=== PATIENT | female | born 1995 | race Caucasian/White ===

== ENCOUNTER 2025-06-10 10:33 | Outpatient (CLI) | payer OTHER, SELFPAY ==
--- OUTSIDE RECORDS SUMMARY | 2025-06-06 11:45 | XMS_ITS ---
Author Organization [facility] [place] [facility] [employer] [place] Address [address] [facility] [place] [address] Care Team Providers Care Pan Shover Name Role Phone Manny Bauer MD Primary Care Provider Candelario Yoo Unavailable [phone] Allergies No Known Allergies REASON FOR VISIT 1 month f/u Medications Medication SIG (Take, Route, Frequency, Duration) Notes Start Date End Date Status lamoTRIgine ER 25 MG Tablet Extended Release 24 Hour 1 tablet Orally daily; Duration: 14 days 06/06/2025 Active lamoTRIgine ER 50 MG Tablet Extended Release 24 Hour 1 tablet Orally Once a day; Duration: 30 days 06/06/2025 Active Ashwagandha 300 MG Tablet as directed Orally Active LORazepam 0.5 MG Tablet 1 tablet Orally twice a day; Duration: 14 days As needed 06/06/2025 Active Vraylar 3 mg Capsule 1 capsule Orally On ce a day; Duration: 30 days 06/06/2025 Active metFORMIN HCl ER 500 MG Tablet Extended Release 24 Hour Oral; Duration: 90 Days Not-Taking Glycopyrrolate 1 MG Tablet TAKE 1 TABLET BY MOUTH EVERY DAY FOR 30 DAYS; Duration: 30 Not-Taking Social History Tobacco Use: Social History Observation Description Date Details (start date - stop date) Never Smoker NA - NA Sex Assigned At : Social History Observation Description Sex Assigned At Female Social History Miscellaneous: Social Info Question Answer Notes Advance Care Planning Are you your own decision-maker Yes Do you have Power of Senior Health Educator for Health or Medi phylicia? No Tobacco Use: Social Info Question Answer Notes Tobacco Control (Standard) Tobacco use: Nonsmoker Additional Details Category Social Info Options Details Migrated Social History Migrated Social History Alcohol Intake: Occasional 08/16/2021,Tobacco Years: Never smoker 08/16/2021 Vital Signs Blood pressure systolic 113 mm Hg 06/06/20 25 Blood pressure diastolic 78 mm Hg 025 Heart Rate 73 /min 06/06/2025 Height 62.50 in 06/06/2025 Weight 170 lbs 06/06/2025 BMI 30.59 kg/m2 06/06/2025 Height-cm 158.75 cm 06/06/2025 Weight-kg 77.11 kg 06/06/2025 Encounters Encounter Location Date Provider Diagnosis [facility] [place] [employer] [facility] [address] [facility] [address] [place] [address] 06/06/2025 Candelario Falk Generalized anxiety disorder F41.1 ; Attention-deficit hyperactivity disorder, predominantly inattentive type F90.0 ; Mild recurrent major depression F33.0 ; Other custodial (current) drug therapy Z79.899 and Hyperhidrosis R61 Assessments Encounter Date Diagnosis (ICD Code) Assessment Notes Treatment Notes Treatment Clinical Notes Section Notes 06/06/2025 Generalized anxiety disorder (ICD-10 - F41.1) lorazepam 0.5mg prn stable 06/06/2025 Attention-deficit hyperactivity disorder, predominantly inattentive type (ICD-10 - F90.0) monitor symptoms 06/06/2025 Mild recurrent major depression (ICD-10 - F33.0) 06/06/2025 Other metalsmith (current) drug therapy (ICD-10 - Z79.899) 06/06/2025 Hyperhidrosis (ICD-10 - R61) Plan Of Treatment Medication Medication Name Sig Start Date Stop Date Notes lamoTRIgine ER 25 MG Tablet Extended Release 24 Hour 1 tablet Orally daily; Duration: 14 days 06/06/2025 lamoTRIgine ER 50 MG Tablet Extended Release 24 Hour 1 tablet Orally Once a day; Duration: 30 days 06/06/2025 LORazepam 0.5 MG Tablet 1 tablet Orally twice a day; Duration: 14 days 06/06/2025 Vraylar 3 mg Capsule 1 capsule Orally On ce a day; Duration: 30 days 06/06/2025 Treatment Notes Assessment Notes Generalized anxiety disorder lorazepam 0.5mg prn stable Attention-deficit hyperactiv ity disorder, predominantly inattentive type monitor symptoms Next Appt Details Follow Up: 4 Weeks, Reason: f/u depression Provider Name:Candelario garcia, 07/18/2025 04:30:00 PM, [address] [address] [facility], [place], [address], History and Physical Notes * HPI (History of Present Illness) Category Sub-Category Detail Notes Category Not es History of Presenting Problem Anxiety Onset: years ago Depression screening done ADHD difficulty with focu s, concentration Timing of Symptoms: chronic ADHD Context: increased productivity at work ADHD Severity: mild Modifying factors: medication adherence: greater than 90%; concerta- didnt help, adderall xr- work off within a few hours ADHD Associated Symptoms Inattention: able to pay attention; well organized; not easily distracted Psychotherapy Krista at [facility] Depression screening PHQ-9 Little inte rest or pleasure in doing things: Several days Feeling down, depressed, or hopeless: Se veral days Trouble falling or staying asleep, or sl eeping too much: Not at all Feeling tired or having little energy: S everal days Poor appetite or overeating: More than h [facility] the days Feeling bad about yourself o r that you are a failure, or have let yourself or your family down: Not at all Trouble concentrating on thi ngs, such as reading the newspaper or watching television: Several days Moving or speaking so slowly that other people could have noticed; or the opposite, being so fidgety or restless that you have been moving around a lot more than usual: Not at all Thoughts that you would be b timbo off or of hurting yourself in some way: Not at all Total Score: 6 Interpretation: Mild Depression Intervention Depression Screening Findings: P ositve Follow-Up for Depression: [facility] health care management, Psychiatric follow-up Suicide Risk Assessment Performed: __ da te Depression Screening REINA-7 (2018 Edition) Feelin g nervous, anxious, or on edge: Nearly every day Not being able to stop or control worryi ng: More than half the days Worrying too much about different things : More than hafl the days Trouble relaxing: Nearly every day Being so restless that it is hard to sit still: Several days Becoming easily annoyed or irritable: No t at all Feeling afraid as if something awful bruce ht happen: Several days Total REINA-7 Score: 12 Interpretation of Total: (10 to 14) Mode rate [place]-Suicide Severity Rating Scale Suicide Risk (CSRS-screener) in the past one month Have you wished you were or wished you could go to sleep and not wake up?: No in the past one month Have y ou actually had any thoughts of killing yourself?: No Have you ever done anything, started to do anything, or prepared to do anything to end your life?: No Examination Category Sub-Category Detail Notes Category Not es Psychiatry Appearance: well-groomed, well-nourished , ... Attitude: cooperative Psychomotor activity: within normal rang e Attention: good Degree of awareness of surroundings: wit hin normal limits Orientation: awake, alert and luis m ented x 3 Affect / mood: appropriate, full ra nge Speech / language: appropriate pitch/mo dulation, clear and coherent, normal rate, volume, and articulation (RVR), proper grammar used Insight: good Judgement: good Thought process: intact Thought content: appropriate Perceptual disorders: no perceptual diso rder noted Suicidal ideation: none Intellectual functioning: no impairment noted Memory status: no impairment noted Delusions: no Hallucinations: no Progress Notes * NANCY KHANHELDOB:[birth year] (29 yo F)Acc No.[id number]:06/06/2025 Patient: MOLINA CONDON Provider: BRII STOKES :1995 A ge:29 Y S ex:Female Date:06/06/2025 Address:[address] [place] [address] [facility] Pcp:Manyn Bauer MD Subjective: * Chief Complaints: * 1 month f/u * HPI: H istory of Presenting Problem: Anxiety O nset: years ago. ADHD d ifficulty with focus, concentration T iming of Symptoms: c hronic A DHD Context: i ncreased productivity at work A DHD Severity: m ild M odifying factors: m edication adherence: greater than 90%; concerta- didnt help, adderall xr- work off within a few hours A DHD Associated Symptoms Inattention: a ble to pay attention; well organized; not easily distracted. Psychotherapy Lynne worthy at [facility]. Depression screening done. D epression Screening: REINA-7 (2018 Edition) F eeling nervous, anxious, or on edge N early every day N ot being able to stop or control worrying?More than half the days W orrying too much about different things M ore than hafl the days T rouble relaxing N early every day B eing so restless that it is hard to sit still S ever B ecoming easily annoyed or irritable N ot at all F eeling afraid as if something awful might happen S ever T otal REINA-7 Score 1 2 I nterpretation of Total ( 10 to 14) Moderate C [place]-Suicide Severity Rating Scale: Suicide Risk (CSRS-screener) i n the past one month Have you wished you were or wished you could go to sleep and not wake up? N o i n the past one month Have you actually had any thoughts of killing yourself? N o H ave you ever done anything, started to do anything, or prepared to do anything to end your life? N o D epression screening: PHQ-9 L ittle interest or pleasure in doing things?Several days F eeling down, depressed, or hopeless S ever T rouble falling or staying asleep, or sleeping too much N ot at all F eeling tired or having little energy S ever P oor appetite or overeating M ore than half the days F eeling bad about yourself or that you are a failure, or have let yourself or your family down N ot at all T rouble concentrating on things, such as reading the newspaper or watching television S ever M oving or speaking so slowly that other people could have noticed; or the opposite, being so fidgety or restless that you have been moving around a lot more than usual N ot at all T houghts that you would be better off or of hurting yourself in some way N ot at all T otal Score 6 I nterpretation M ild Depression Intervention D epression Screening Findings P ositve F ollow-Up for Depression M ental health care management, Psychiatric follow-up S uicide Risk Assessment Performed _ _ date P ast Psychiatric Hospitalizations: hx of non adherence with medication citalopram, atomoxetine, sertraline, Concerta, Adderall xr, vraylar, vyvanse. 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 The patient had telephone consultations with Amberly Gregory and Luana Payan at [facility] on March 18, 2024, and March 15, 2024, respectively. The patient also had an office visit with Migdalia Figueroa DO at [facility] on June 11, 2024, and a telemedicine consultation on October 09, 2024, for spells of decreased attentiveness. On October 28, 2024, the patient visited Emelina Aleman NP at [facility] for bronchitis. 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 The patient also had a lab encounter on the same day for hepatitis C screening, family history of thyroid disease, and lipid screening. Medical History Verified * Social History: T obacco Use: T obacco Control (Standard) T obacco use: N onsmoker M igrated Social History: M igrated Social History: Alcohol Intake: Occasional 08/16/2021,Tobacco Years: Never smoker 08/16/2021. M iscellaneous: A dvance Care Planning A re you your own decision-maker Y es D o you have Power of Senior Health Educator for Health or Medical? N o S ocial History Verified. * Medications: T akingAshwagandha 300 MG Tablet as directed Orally LORazepam 0.5 MG Tablet 1 tablet Orally twice a day As neededVraylar 3 mg Capsule 1 capsule Orally Once a day Taking Ashwagandha 300 MG Tablet as directed Orally Taking LORazepam 0.5 MG Tablet 1 tablet Orally twice a day As neededTaking Vraylar 3 mg Capsule 1 capsule Orally Once a day Not-TakingGlycopyrrolate 1 MG Tablet TAKE 1 TABLET BY MOUTH EVERY DAY FOR 30 DAYS metFORMIN HCl ER 500 MG Tablet Extended Release 24 Hour Oral Not-Taking Glycopyrrolate 1 MG Tablet TAKE 1 TABLET BY MOUTH EVERY DAY FOR 30 DAYS Not- Taking metFORMIN HCl ER 500 MG Tablet Extended Release 24 Hour Oral DiscontinuedTopiramate 25 MG Tablet Oral Medication List reviewed and reconciled with the patientDiscontinued Topiramate 25 MG Tablet Oral Medication List reviewed and reconciled with the patient * Allergies: N .K.D.AHeatheryesAllergies Verified. Objective: * Vitals: B P:113/78mm Hg, HR:73/min, Wt:170lbs, Wt-k.11 kg, Ht: 62.50 in, Ht-cm: 158.75 cm, BMI:30.59Index, Body Surface Area: 1.84. * Examination: P sychiatry: Appearance: w ell-groomed, well-nourished, .... Affect / mood: a ppropriate, full range. Attention: g ood. Attitude: c ooperative. Suicidal ideation: n one. Memory status: n o impairment noted. Degree of awareness of surroundings: w ithin normal limits.? Delusions: n o. Hallucinations: n o. Insight: g ood. Intellectual functioning: n o impairment noted. Judgement: g ood. Orientation: a wake, alert and oriented x 3. Perceptual disorders: n o perceptual disorder noted. Psychomotor activity: w ithin normal range. Speech / language: a ppropriate pitch/modulation, clear and coherent, normal rate, volume, and articulation (RVR), proper grammar used. Thought content: a ppropriate. Thought process: i ntact. Assessment: * Assessment: 1. G eneralized anxiety disorder - F41.1 (Primary) 2 . A ttention-deficit hyperactivity disorder, predominantly inattentive type - F90.0 3 . M ild recurrent major depression - F33.0 4 . O ther metalsmith (current) drug therapy - Z79.899 5. H yperhidrosis - R61 Plan: * Treatment: 2. A ttention-deficit hyperactivity disorder, predominantly inattentive type Notes: monitor symptoms 3. M ild recurrent major depression Refill Vraylar Capsule, 3 mg, 1 capsule, Orally, Once a day, 30 days, 30 Capsule, Refills 1; S tart lamoTRIgine ER Tablet Extended Release 24 Hour, 25 MG, 1 tablet, Orally, daily, 14 days, 14 Tablet, Refills 0; S tart lamoTRIgine ER Tablet Extended Release 24 Hour, 50 MG, 1 tablet, Orally, Once a day, 30 days, 30 Tablet, Refills 0. * Procedure Codes: 1 036F TOBACCO [id number] BEHAV ASSMT W/SCORE & DOCD/STAND INSTRUMENT * Preventive Medicine: Screenings: D epression screening Have you had a recent depression screening? Y es * Follow Up: 4 Weeks (Reason: f/u depression) Billing Information: * Visit Code: 31510 OFFICE OUTPATIENT VISIT 25 MINUTES DETAILED HISTORY AND EXAM/MODERATE MEDICAL DECISION MAKING. * Procedure Codes: 1036F TOBACCO NON-USER. 50875 BEHAV ASSMT W/SCORE & DOCD/STAND INSTRUMENT. * Electronic signature of BRII Rm on 06/10/2025 at 11:36 AM CDT Sign off status: Pending * Provider: BRII STOKES Date: Generated for Leti nicholas/Yeison/Joi on: 11:36 AM CDT
--- OUTSIDE RECORDS SUMMARY | 2025-06-10 11:36 | XMS_ITS | Patient Health Record ---
Author Organization [facility] [employer] Address [address] [place] [address] Care Team Providers Care Tier Lift Operator Name Role Phone Manny Bauer MD Primary Care Provider Candelario Yoo Unavailable [phone] Allergies No Known Allergies Reason For Referral No Information Medications Medication SIG (Take, Route, Frequency, Duration) Notes Start Date End Date Status Vraylar 3 mg Capsule 1 capsule Orally On ce a day; Duration: 30 days 06/06/2025 Active lamoTRIgine ER 25 MG Tablet Extended Release 24 Hour 1 tablet Orally daily; Duration: 14 days 06/06/2025 Active lamoTRIgine ER 50 MG Tablet Extended Release 24 Hour 1 tablet Orally Once a day; Duration: 30 days 06/06/2025 Active Ashwagandha 300 MG Tablet as directed Orally Active LORazepam 0.5 MG Tablet 1 tablet Orally twice a day; Duration: 14 days As needed 06/06/2025 Active metFORMIN HCl ER 500 MG Tablet Extended Release 24 Hour Oral; Duration: 90 Days Not-Taking Glycopyrrolate 1 MG Tablet TAKE 1 TABLET BY MOUTH EVERY DAY FOR 30 DAYS; Duration: 30 Not-Taking Immunizations Vaccine Route Administration Date Status Comme nts [employer] Covid-19 Vac cine 2nd dose Unknown 08/15/2021 Administered Social History Tobacco Use: Social History Observation Description Date Details (start date - stop date) Never Smoker NA - NA Sex Assigned At : Social History Observation Description Sex Assigned At Female Social History Miscellaneous: Social Info Question Answer Notes Advance Care Planning Are you your own decision-maker Yes Do you have Power of Seo Executive for Health or Medi phylicia? No Tobacco Use: Social Info Question Answer Notes Tobacco Control (Standard) Tobacco use: Nonsmoker Additional Details Category Social Info Options Details Migrated Social History Migrated Social History Alcohol Intake: Occasional 08/16/2021,Tobacco Years: Never smoker 08/16/2021 Problems Problem Type SNOMED Code ICD Code Onset Dates Problem Status W/U Status Risk Notes Problem Mild recurrent major depression (09718020) Major depressive disorder, recurrent, mild (F33.0) Active confirmed Problem Generalized anxiety disorder (50588494) Generalized anxiety disorder (F41.1) Active confirmed Problem Attention deficit hyperactivity disorder, predominantly inattentive type (02243677) Attention-deficit hyperactivity disorder, 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 confirmed Problem Mild recurrent major depression (74676360) Mild recurrent major depression (F33.0) Active confirmed Problem Severe major depression with psychotic features (29719370) Severe major depression with psychotic features (F32.3) Active confirmed Vital Signs Heart Rate 73 /min 06/06/2025 Height-cm 158.75 cm 06/06/2025 Blood pressure diastolic 78 mm Hg 06/06/2025 Weight-kg 77.11 kg 06/06/2025 Height 62.50 in 06/06/2025 Blood pressure systolic 113 mm Hg 06/06/2025 Weight 170 lbs 06/06/2025 BMI 30.59 kg/m2 06/06/2025 Encounters Encounter Location Date Provider Diagnosis [facility] [employer] [address] [place] [address] 06/06/2025 Candelario Falk Generalized anxiety disorder F41.1 ; Attention-deficit hyperactivity disorder, predominantly inattentive type F90.0 ; Mild recurrent major depression F33.0 ; Other fpc (current) drug therapy Z79.899 and Hyperhidrosis R61 [facility] [address] [place] [address] 06/11/2024 Candelario Falk Generalized anxiety disorder F41.1 ; Attention-deficit hyperactivity disorder, predominantly inattentive type F90.0 and Severe major depression with psychotic features F32.3 [facility] [address] [place] [address] 07/09/2024 Candelario Falk Generalized anxiety disorder F41.1 ; Attention-deficit hyperactivity disorder, predominantly inattentive type F90.0 and Severe major depression with psychotic features F32.3 [facility] [address] [place] [address] 08/09/2024 Candelario Falk Generalized anxiety disorder F41.1 ; Attention-deficit hyperactivity disorder, predominantly inattentive type F90.0 ; Mild recurrent major depression F33.0 ; Irregular periods/menstrual cycles N92.6 ; 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 and Hyperhidrosis R61 [facility] [address] [place] [address] 09/27/2024 Candelario Falk Generalized anxiety disorder F41.1 ; Attention-deficit hyperactivity disorder, predominantly inattentive type F90.0 ; Mild recurrent major depression F33.0 ; Irregular periods/menstrual cycles N92.6 ; 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 and Hyperhidrosis R61 [facility] [address] [place] [address] 10/28/2024 Candelario Falk [facility] [address] [place] [address] 12/24/2024 Candelario Falk Generalized anxiety disorder F41.1 ; Attention-deficit hyperactivity disorder, predominantly inattentive type F90.0 ; Mild recurrent major depression F33.0 ; Irregular periods/menstrual cycles N92.6 ; Other fpc (current) drug therapy Z79.899 and Hyperhidrosis R61 [facility] [address] [place] [address] 02/28/2025 Candelario Falk Generalized anxiety disorder F41.1 ; Attention-deficit hyperactivity disorder, predominantly inattentive type F90.0 ; Mild recurrent major depression F33.0 ; Irregular periods/menstrual cycles N92.6 ; 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 and Hyperhidrosis R61 [facility] [address] [place] [address] 05/09/2025 Candelario Falk Generalized anxiety disorder F41.1 ; Attention-deficit hyperactivity disorder, predominantly inattentive type F90.0 ; Mild recurrent major depression F33.0 ; 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 and Hyperhidrosis R61 [facility] [address] [place] [address] 06/26/2024 Candelario Falk [facility] [address] [facility] [address] [place] [address] 07/30/2024 Candelarioraven Falk Severe major depress ion with psychotic features F32.3 [facility] [address] [facility] [address] [facility] [address] [place] [address] 12/13/2024 Candelario Falk Mild recurrent major depression F33.0 [place] [address] [facility] [address] [place] [address] 12/16/2024 Candelarioraven Falk [facility] [address] [facility] [address] [facility] [address] [place] [address] 05/27/2025 Candelarioraven Falk Assessments Encounter Date Diagnosis (ICD Code) Assessment Notes Treatment Notes Treatment Clinical Notes Section Notes 07/30/2024 Severe major depression with psychotic features (ICD-10 - F32.3) 08/09/2024 Generalized anxiety disorder (ICD-10 - F41.1) lorazepam 0.5mg prn 1. Hyperhidrosis: - Continue quetiapine 100 mg daily - Consider adding clonidine, propranolol, or glycopyrrolate for sweating management - Encourage the use of stronger deodorants and antibacterial soap Plan: - Monitor for side effects and effectiveness of the chosen treatment 2. Anxiety: - Continue quetiapine 100 mg daily - Consider adding clonidine or propranolol for anxiety management if needed Plan: - Monitor for side effects and effectiveness of the chosen treatment 3. Mood stability: - Continue quetiapine 100 mg daily - Monitor mood and adjust the dose of quetiapine as needed during acute states Plan: - Encourage the patient to maintain a stable routine and manage stressors 4. Fatigue: Plan: - Order lab work: CBC, CMP, thyroid panel, lipid panel, hemoglobin A1C, iron studies - Evaluate for anemia, thyroid dysfunction, and other potential causes of fatigue - Monitor and address any identified abnormalities 5. Irregular and heavy menstrual cycles: Plan: - Order hormone tests: luteinizing hormone, follicle-stimula ting hormone, testosterone, estrogen - Evaluate for polycystic ovary syndrome (PCOS) or other hormonal imbalances - Refer to ob-customer management specialist or primary care provider if hormone levels are abnormal 6. Medication refills: Plan: - Refill methylphenidate prescription - Refill quetiapine 100 mg prescription - Ensure the patient has an adequate supply of medications until the next visit 7. Follow-up: - Schedule a follow-up appointment in one month to review lab results and assess the effectiveness of the treatment plan - Adjust medications and treatment plan as needed based on the patient's response and lab findings 08/09/2024 Attention-defic it hyperactivity disorder, predominantly inattentive type (ICD-10 - F90.0) monitor symptoms 1. Hyperhidrosis: - Continue quetiapine 100 mg daily - Consider adding clonidine, propranolol, or glycopyrrolate for sweating management - Encourage the use of stronger deodorants and antibacterial soap Plan: - Monitor for side effects and effectiveness of the chosen treatment 2. Anxiety: - Continue quetiapine 100 mg daily - Consider adding clonidine or propranolol for anxiety management if needed Plan: - Monitor for side effects and effectiveness of the chosen treatment 3. Mood stability: - Continue quetiapine 100 mg daily - Monitor mood and adjust the dose of quetiapine as needed during acute states Plan: - Encourage the patient to maintain a stable routine and manage stressors 4. Fatigue: Plan: - Order lab work: CBC, CMP, thyroid panel, lipid panel, hemoglobin A1C, iron studies - Evaluate for anemia, thyroid dysfunction, and other potential causes of fatigue - Monitor and address any identified abnormalities 5. Irregular and heavy menstrual cycles: Plan: - Order hormone tests: luteinizing hormone, follicle-stimula ting hormone, testosterone, estrogen - Evaluate for polycystic ovary syndrome (PCOS) or other hormonal imbalances - Refer to ob-customer management specialist or primary care provider if hormone levels are abnormal 6. Medication refills: Plan: - Refill methylphenidate prescription - Refill quetiapine 100 mg prescription - Ensure the patient has an adequate supply of medications until the next visit 7. Follow-up: - Schedule a follow-up appointment in one month to review lab results and assess the effectiveness of the treatment plan - Adjust medications and treatment plan as needed based on the patient's response and lab findings 06/11/2024 Generalized anxiety disorder (ICD-10 - F41.1) lorazepam 0.5mg prn 1. Depression: - Patient reports improvement in mood with quetiapine ER 150 mg. Memory issues and word association problems persist but are improving. Plan: - Continue quetiapine ER 150 mg. - Encourage the patient to take quetiapine ER earlier in the evening to minimize morning grogginess. 2. Sleep: - Patient reports sleeping well and falling asleep within 30 minutes. Plan: - No changes needed. 3. Anxiety and Paranoia: - Patient reports occasional paranoia related to returning to work but no hallucinations. Plan: - Continue monitoring. No changes to medication at this time. 4. Attention and Concentration: - Patient reports difficulty with processing time, attention, and concentration, which may impact their ability to return to work. Plan: - Discontinue Vyvanse. - Start Concerta 18 mg in the morning on a trial basis to assess its effect on attention and concentration. - Instruct the patient to take it some days before returning to work to evaluate its effectiveness. 5. Work-related stress: - Patient expresses concerns about returning to work and interacting with colleagues and supervisors. Plan: - Encourage the patient to take an additional week off work to adjust to the new medication and continue working on coping strategies for managing work-related stress. - Recommend maintaining professional boundaries with colleagues and addressing any issues directly with supervisors or managers. 6. Follow-up: - Schedule a follow-up appointment in 2-4 weeks to assess the patient's progress, medication effectiveness, and work-related stress management. 09/27/2024 Generalized anxiety disorder (ICD-10 - F41.1) lorazepam 0.5mg prn 12/13/2024 Mild recurrent major depression (ICD-10 - F33.0) 02/28/2025 Generalized anxiety disorder (ICD-10 - F41.1) lorazepam 0.5mg prn stable 05/09/2025 Generalized anxiety disorder (ICD-10 - F41.1) lorazepam 0.5mg prn stable 05/09/2025 Attention-defic it hyperactivity disorder, predominantly inattentive type (ICD-10 - F90.0) monitor symptoms 06/06/2025 Generalized anxiety disorder (ICD-10 - F41.1) lorazepam 0.5mg prn stable 06/06/2025 Attention-defic it hyperactivity disorder, predominantly inattentive type (ICD-10 - F90.0) monitor symptoms 12/24/2024 Generalized anxiety disorder (ICD-10 - F41.1) lorazepam 0.5mg prn 07/09/2024 Generalized anxiety disorder (ICD-10 - F41.1) lorazepam 0.5mg prn 1. Anxiety and paranoia related to workplace gossip: - Continue practicing assertive communication to address nosy coworkers - Focus on work tasks and minimize sharing personal information Plan: - Monitor anxiety levels and report any significant changes 2. Anger management: - Patient reports improvement with current medication (Seroquel) - Continue Seroquel ER at the current dose Plan: - Encourage patient to utilize coping strategies and stress management techniques 3. Cognitive processing and attention difficulties: - Patient currently on Concerta 18 mg with partial improvement Plan: - Increase Concerta to 36 mg daily - Reassess cognitive processing and attention in one month 4. Mood stability: - Patient reports feeling emotionally stable outside of work Plan: - Continue monitoring mood and emotional well-being - Encourage patient to engage in self-care and stress reduction activities 5. Follow-up: - Schedule a follow-up appointment in one month to reassess medication effectiveness and overall mental health status. 07/09/2024 Attention-defic it hyperactivity disorder, predominantly inattentive type (ICD-10 - F90.0) monitor symptoms 1. Anxiety and paranoia related to workplace gossip: - Continue practicing assertive communication to address nosy coworkers - Focus on work tasks and minimize sharing personal information Plan: - Monitor anxiety levels and report any significant changes 2. Anger management: - Patient reports improvement with current medication (Seroquel) - Continue Seroquel ER at the current dose Plan: - Encourage patient to utilize coping strategies and stress management techniques 3. Cognitive processing and attention difficulties: - Patient currently on Concerta 18 mg with partial improvement Plan: - Increase Concerta to 36 mg daily - Reassess cognitive processing and attention in one month 4. Mood stability: - Patient reports feeling emotionally stable outside of work Plan: - Continue monitoring mood and emotional well-being - Encourage patient to engage in self-care and stress reduction activities 5. Follow-up: - Schedule a follow-up appointment in one month to reassess medication effectiveness and overall mental health status. 12/24/2024 Attention-defic it hyperactivity disorder, predominantly inattentive type (ICD-10 - F90.0) monitor symptoms 06/06/2025 Mild recurrent major depression (ICD-10 - F33.0) 05/09/2025 Mild recurrent major depression (ICD-10 - F33.0) 02/28/2025 Attention-defic it hyperactivity disorder, predominantly inattentive type (ICD-10 - F90.0) monitor symptoms 09/27/2024 Attention-defic it hyperactivity disorder, predominantly inattentive type (ICD-10 - F90.0) monitor symptoms 06/11/2024 Attention-defic it hyperactivity disorder, predominantly inattentive type (ICD-10 - F90.0) monitor symptoms 1. Depression: - Patient reports improvement in mood with quetiapine ER 150 mg. Memory issues and word association problems persist but are improving. Plan: - Continue quetiapine ER 150 mg. - Encourage the patient to take quetiapine ER earlier in the evening to minimize morning grogginess. 2. Sleep: - Patient reports sleeping well and falling asleep within 30 minutes. Plan: - No changes needed. 3. Anxiety and Paranoia: - Patient reports occasional paranoia related to returning to work but no hallucinations. Plan: - Continue monitoring. No changes to medication at this time. 4. Attention and Concentration: - Patient reports difficulty with processing time, attention, and concentration, which may impact their ability to return to work. Plan: - Discontinue Vyvanse. - Start Concerta 18 mg in the morning on a trial basis to assess its effect on attention and concentration. - Instruct the patient to take it some days before returning to work to evaluate its effectiveness. 5. Work-related stress: - Patient expresses concerns about returning to work and interacting with colleagues and supervisors. Plan: - Encourage the patient to take an additional week off work to adjust to the new medication and continue working on coping strategies for managing work-related stress. - Recommend maintaining professional boundaries with colleagues and addressing any issues directly with supervisors or managers. 6. Follow-up: - Schedule a follow-up appointment in 2-4 weeks to assess the patient's progress, medication effectiveness, and work-related stress management. 08/09/2024 Mild recurrent major depression (ICD-10 - F33.0) 1. Hyperhidrosis: - Continue quetiapine 100 mg daily - Consider adding clonidine, propranolol, or glycopyrrolate for sweating management - Encourage the use of stronger deodorants and antibacterial soap Plan: - Monitor for side effects and effectiveness of the chosen treatment 2. Anxiety: - Continue quetiapine 100 mg daily - Consider adding clonidine or propranolol for anxiety management if needed Plan: - Monitor for side effects and effectiveness of the chosen treatment 3. Mood stability: - Continue quetiapine 100 mg daily - Monitor mood and adjust the dose of quetiapine as needed during acute states Plan: - Encourage the patient to maintain a stable routine and manage stressors 4. Fatigue: Plan: - Order lab work: CBC, CMP, thyroid panel, lipid panel, hemoglobin A1C, iron studies - Evaluate for anemia, thyroid dysfunction, and other potential causes of fatigue - Monitor and address any identified abnormalities 5. Irregular and heavy menstrual cycles: Plan: - Order hormone tests: luteinizing hormone, follicle-stimula ting hormone, testosterone, estrogen - Evaluate for polycystic ovary syndrome (PCOS) or other hormonal imbalances - Refer to ob-customer management specialist or primary care provider if hormone levels are abnormal 6. Medication refills: Plan: - Refill methylphenidate prescription - Refill quetiapine 100 mg prescription - Ensure the patient has an adequate supply of medications until the next visit 7. Follow-up: - Schedule a follow-up appointment in one month to review lab results and assess the effectiveness of the treatment plan - Adjust medications and treatment plan as needed based on the patient's response and lab findings 08/09/2024 Irregular periods/menstru al cycles (ICD-10 - N92.6) 1. Hyperhidrosis: - Continue quetiapine 100 mg daily - Consider adding clonidine, propranolol, or glycopyrrolate for sweating management - Encourage the use of stronger deodorants and antibacterial soap Plan: - Monitor for side effects and effectiveness of the chosen treatment 2. Anxiety: - Continue quetiapine 100 mg daily - Consider adding clonidine or propranolol for anxiety management if needed Plan: - Monitor for side effects and effectiveness of the chosen treatment 3. Mood stability: - Continue quetiapine 100 mg daily - Monitor mood and adjust the dose of quetiapine as needed during acute states Plan: - Encourage the patient to maintain a stable routine and manage stressors 4. Fatigue: Plan: - Order lab work: CBC, CMP, thyroid panel, lipid panel, hemoglobin A1C, iron studies - Evaluate for anemia, thyroid dysfunction, and other potential causes of fatigue - Monitor and address any identified abnormalities 5. Irregular and heavy menstrual cycles: Plan: - Order hormone tests: luteinizing hormone, follicle-stimula ting hormone, testosterone, estrogen - Evaluate for polycystic ovary syndrome (PCOS) or other hormonal imbalances - Refer to ob-customer management specialist or primary care provider if hormone levels are abnormal 6. Medication refills: Plan: - Refill methylphenidate prescription - Refill quetiapine 100 mg prescription - Ensure the patient has an adequate supply of medications until the next visit 7. Follow-up: - Schedule a follow-up appointment in one month to review lab results and assess the effectiveness of the treatment plan - Adjust medications and treatment plan as needed based on the patient's response and lab findings 06/11/2024 Severe major depression with psychotic features (ICD-10 - F32.3) cont Quetiapine er 150mg every evening 1. Depression: - Patient reports improvement in mood with quetiapine ER 150 mg. Memory issues and word association problems persist but are improving. Plan: - Continue quetiapine ER 150 mg. - Encourage the patient to take quetiapine ER earlier in the evening to minimize morning grogginess. 2. Sleep: - Patient reports sleeping well and falling asleep within 30 minutes. Plan: - No changes needed. 3. Anxiety and Paranoia: - Patient reports occasional paranoia related to returning to work but no hallucinations. Plan: - Continue monitoring. No changes to medication at this time. 4. Attention and Concentration: - Patient reports difficulty with processing time, attention, and concentration, which may impact their ability to return to work. Plan: - Discontinue Vyvanse. - Start Concerta 18 mg in the morning on a trial basis to assess its effect on attention and concentration. - Instruct the patient to take it some days before returning to work to evaluate its effectiveness. 5. Work-related stress: - Patient expresses concerns about returning to work and interacting with colleagues and supervisors. Plan: - Encourage the patient to take an additional week off work to adjust to the new medication and continue working on coping strategies for managing work-related stress. - Recommend maintaining professional boundaries with colleagues and addressing any issues directly with supervisors or managers. 6. Follow-up: - Schedule a follow-up appointment in 2-4 weeks to assess the patient's progress, medication effectiveness, and work-related stress management. 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 Anxiety and paranoia related to workplace gossip: - Continue practicing assertive communication to address nosy coworkers - Focus on work tasks and minimize sharing personal information Plan: - Monitor anxiety levels and report any significant changes 2. Anger management: - Patient reports improvement with current medication (Seroquel) - Continue Seroquel ER at the current dose Plan: - Encourage patient to utilize coping strategies and stress management techniques 3. Cognitive processing and attention difficulties: - Patient currently on Concerta 18 mg with partial improvement Plan: - Increase Concerta to 36 mg daily - Reassess cognitive processing and attention in one month 4. Mood stability: - Patient reports feeling emotionally stable outside of work Plan: - Continue monitoring mood and emotional well-being - Encourage patient to engage in self-care and stress reduction activities 5. Follow-up: - Schedule a follow-up appointment in one month to reassess medication effectiveness and overall mental health status. 12/24/2024 Mild recurrent major depression (ICD-10 - F33.0) 12/24/2024 Irregular periods/menstru al cycles (ICD-10 - N92.6) 06/06/2025 Hyperhidrosis (ICD-10 - R61) 02/28/2025 Irregular periods/menstru al cycles (ICD-10 - N92.6) 05/09/2025 Hyperhidrosis (ICD-10 - R61) 09/27/2024 Irregular periods/menstru al cycles (ICD-10 - N92.6) 08/09/2024 Other fpc (current) drug therapy (ICD-10 - Z79.899) 1. Hyperhidrosis: - Continue quetiapine 100 mg daily - Consider adding clonidine, propranolol, or glycopyrrolate for sweating management - Encourage the use of stronger deodorants and antibacterial soap Plan: - Monitor for side effects and effectiveness of the chosen treatment 2. Anxiety: - Continue quetiapine 100 mg daily - Consider adding clonidine or propranolol for anxiety management if needed Plan: - Monitor for side effects and effectiveness of the chosen treatment 3. Mood stability: - Continue quetiapine 100 mg daily - Monitor mood and adjust the dose of quetiapine as needed during acute states Plan: - Encourage the patient to maintain a stable routine and manage stressors 4. Fatigue: Plan: - Order lab work: CBC, CMP, thyroid panel, lipid panel, hemoglobin A1C, iron studies - Evaluate for anemia, thyroid dysfunction, and other potential causes of fatigue - Monitor and address any identified abnormalities 5. Irregular and heavy menstrual cycles: Plan: - Order hormone tests: luteinizing hormone, follicle-stimula ting hormone, testosterone, estrogen - Evaluate for polycystic ovary syndrome (PCOS) or other hormonal imbalances - Refer to ob-customer management specialist or primary care provider if hormone levels are abnormal 6. Medication refills: Plan: - Refill methylphenidate prescription - Refill quetiapine 100 mg prescription - Ensure the patient has an adequate supply of medications until the next visit 7. Follow-up: - Schedule a follow-up appointment in one month to review lab results and assess the effectiveness of the treatment plan - Adjust medications and treatment plan as needed based on the patient's response and lab findings 08/09/2024 Hyperhidrosis (ICD-10 - R61) 1. Hyperhidrosis: - Continue quetiapine 100 mg daily - Consider adding clonidine, propranolol, or glycopyrrolate for sweating management - Encourage the use of stronger deodorants and antibacterial soap Plan: - Monitor for side effects and effectiveness of the chosen treatment 2. Anxiety: - Continue quetiapine 100 mg daily - Consider adding clonidine or propranolol for anxiety management if needed Plan: - Monitor for side effects and effectiveness of the chosen treatment 3. Mood stability: - Continue quetiapine 100 mg daily - Monitor mood and adjust the dose of quetiapine as needed during acute states Plan: - Encourage the patient to maintain a stable routine and manage stressors 4. Fatigue: Plan: - Order lab work: CBC, CMP, thyroid panel, lipid panel, hemoglobin A1C, iron studies - Evaluate for anemia, thyroid dysfunction, and other potential causes of fatigue - Monitor and address any identified abnormalities 5. Irregular and heavy menstrual cycles: Plan: - Order hormone tests: luteinizing hormone, follicle-stimula ting hormone, testosterone, estrogen - Evaluate for polycystic ovary syndrome (PCOS) or other hormonal imbalances - Refer to ob-customer management specialist or primary care provider if hormone levels are abnormal 6. Medication refills: Plan: - Refill methylphenidate prescription - Refill quetiapine 100 mg prescription - Ensure the patient has an adequate supply of medications until the next visit 7. 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 Hyperhidrosis: - Continue quetiapine 100 mg daily - Consider adding clonidine, propranolol, or glycopyrrolate for sweating management - Encourage the use of stronger deodorants and antibacterial soap Plan: - Monitor for side effects and effectiveness of the chosen treatment 2. Anxiety: - Continue quetiapine 100 mg daily - Consider adding clonidine or propranolol for anxiety management if needed Plan: - Monitor for side effects and effectiveness of the chosen treatment 3. Mood stability: - Continue quetiapine 100 mg daily - Monitor mood and adjust the dose of quetiapine as needed during acute states Plan: - Encourage the patient to maintain a stable routine and manage stressors 4. Fatigue: Plan: - Order lab work: CBC, CMP, thyroid panel, lipid panel, hemoglobin A1C, iron studies - Evaluate for anemia, thyroid dysfunction, and other potential causes of fatigue - Monitor and address any identified abnormalities 5. Irregular and heavy menstrual cycles: Plan: - Order hormone tests: luteinizing hormone, follicle-stimula ting hormone, testosterone, estrogen - Evaluate for polycystic ovary syndrome (PCOS) or other hormonal imbalances - Refer to ob-customer management specialist or primary care provider if hormone levels are abnormal 6. Medication refills: Plan: - Refill methylphenidate prescription - Refill quetiapine 100 mg prescription - Ensure the patient has an adequate supply of medications until the next visit 7. Follow-up: - Schedule a follow-up appointment in one month to review lab results and assess the effectiveness of the treatment plan - Adjust medications and treatment plan as needed based on the patient's response and lab findings 09/27/2024 Other 1. Persistent fatigue and lack of motivation: - Patient reports feeling excessively tired and unmotivated despite adequate sleep. - Current dosage of quetiapine ER (100 mg) may be contributing to these symptoms. Plan: - Reduce quetiapine ER dosage to 50 mg nightly. - Monitor patient's energy levels and motivation. 2. Anxiety management: - Patient reports that the current medication regimen helps with anxiety and keeps them calm. Plan: - Continue monitoring anxiety levels and adjust medications as needed. 3. Possible medication adjustment: - Patient inquires about alternative medications to Seroquel (quetiapine) that may not cause excessive tiredness. Plan: - Introduce Vraylar (cariprazine) at 1.5 mg daily. - If Vraylar causes sleepiness, take it in the evening; otherwise, take it in the morning. - Monitor patient's response to Vraylar and adjust dosage as needed (max dose: 6 mg). - Reevaluate the need for quetiapine after one month on Vraylar and consider tapering off if appropriate. 4. Concerta management: - Patient is currently taking Concerta (methylphenidate ) 36 mg for attention and focus. Plan: - Continue Concerta at the current dosage of 36 mg. - Monitor patient's attention and focus during follow-up visits. 5. Follow-up: - Schedule a follow-up appointment in one month to assess the patient's response to the medication adjustments and overall mental health status. 12/24/2024 Other Shantell Khan presents with concerns about weight gain, medication management, and mild motivational issues while overall reporting mood stability and improved focus. Bipolar Disorder Assessment: Patient reports overall mood stability with no recent depressive or manic episodes. Current medication regimen includes Vraylar, which has been effective in managing bipolar symptoms. Patient discontinued quetiapine. Some mild motivational issues and fatigue noted, but patient denies feeling sad or depressed. Sleep disturbances reported with occasional nighttime awakenings, but anxiety is not present. Plan: - Continue Vraylar at current dose (taken at 7 PM) - Monitor for side effects, particularly weight gain and sleep disturbances - Follow up in 2 months to reassess mood stability and medication efficacy Weight Gain Assessment: Patient reports significant weight gain of approximately 30 pounds since September. Recent bloodwork results were reported as normal. Patient attributes weight gain potentially to Vraylar. Diet has deteriorated, with increased consumption of high-carbohydrat e foods like pasta. Plan: - Encourage dietary improvements, focusing on healthier food choices - Patient to start metformin 500 mg PO BID as prescribed by primary care physician - Monitor weight and efficacy of metformin at follow-up Attention Deficit Hyperactivity Disorder (ADHD) Assessment: Patient reports good focus and concentration both at work and home. Has been taking methylphenidate (Concerta) inconsistently due to side effect of excessive sweating. Patient feels capable of completing tasks without consistent use of medication. Plan: - Discontinue regular use of methylphenidate (Concerta) - Maintain current prescription without refill for as-needed use - Reassess need for ADHD medication at follow-up appointment the note is transcribed using speech recognition software. It is a reflection of a visit with the patient. It might have some inaccuracy, including medication names and transcribing errors, though efforts have been made to correct them. 02/28/2025 Dori Khan, a patient with a history of depression and anxiety, presents after restarting Vraylar following a month-long medication lapse, reporting improved mood but persistent anxiety. Major Depressive Disorder Assessment: Patient reports improvement in depressive symptoms with Vraylar 1.5 mg. She experienced a noticeable decline in mood during a one-month period off medication, including increased crying, anxiety, and paranoia. Upon restarting Vraylar, she notes significant improvement, though some residual anxiety persists. This suggests that Vraylar is effective in managing her depressive symptoms, but may not fully address her anxiety. Plan: - Continue Vraylar 1.5 mg daily for depression management - Implement strategies to improve medication adherence: - Keep medication by bedside - Set up recurring phone reminders - Place medication near daily-use items - Follow up in 2 months - Refill Vraylar prescription Anxiety Assessment: Patient reports ongoing anxiety, particularly in social situations and at work, despite improvement in depressive symptoms with Vraylar. The anxiety persisted after restarting medication, suggesting it may require separate management strategies. Plan: - Monitor anxiety symptoms - Consider behavioral management strategies for situational anxiety, particularly in social and work contexts - Evaluate need for additional interventions at follow-up if anxiety persists Weight Gain Assessment: Patient reports weight gain from 145 lbs to 170 lbs since August, associated with overeating. She is currently taking metformin, prescribed twice daily, but reports it is not effectively managing her appetite. Plan: - Patient to discuss alternative appetite management options with primary care physician - Continue metformin as prescribed pending primary care follow-up Medication Side Effects Assessment: Patient reports excessive sweating and body odor as side effects of ADHD medication, leading to discontinuation of the medication. Plan: - Acknowledge patient's decision to discontinue ADHD medication due to side effects - Monitor for any impact on daily functioning due to untreated ADHD symptoms the note is transcribed using speech recognition software. It is a reflection of a visit with the patient. It might have some inaccuracy, including medication names and transcribing errors, though efforts have been made to correct them. 05/09/2025 Dori Khan presents with anxiety, paranoia, anhedonia, and sleep disturbances, reporting recent use of Ashwagandha for anxiety management with minimal effect. Anxiety with paranoid features Assessment: Patient reports feeling anxious and on edge during the day, particularly at work. Paranoid thoughts have emerged in the last 2 weeks. Current treatment with Ashwagandha for approximately 2 weeks has provided minimal relief. Patient also describes anhedonia and lack of motivation. Sleep disturbances are present, with patient waking up at 2 AM most nights. These symptoms suggest an exacerbation of anxiety with possible depressive features. Plan: - Increase Vraylar from 1.5 mg to 3 mg - Provide samples of 3 mg Vraylar - Continue monitoring for side effects and efficacy of increased dosage - Follow up to assess response to medication adjustment the note is transcribed using speech recognition software. It is a reflection of a visit with the patient. It might have some inaccuracy, including medication names and transcribing errors, though efforts have been made to correct them. Plan Of Treatment Future Test Test Name Order Date LIPID PANEL, STANDARD (7600) 08/09/2024 FSH AND LH (7137) 08/09/2024 TSH+FREE T4 (41475) 08/09/2024 COMPREHENSIVE METABOLIC PANEL (52171) IRON AND TOTAL IRON BINDING CAPACITY (75 73) 08/09/2024 CBC (H/H, RBC, INDICES, WBC, PLT) (1759) 08/09/2024 HEMOGLOBIN A1c (496) 08/09/2024 ESTRADIOL (4021) 08/09/2024 T3, FREE (54012) 08/09/2024 TESTOSTERONE, TOTAL, MS (35583) 08/09/20 TESTOSTERONE, FREE (77165) 08/09/2024 Next Appt Details Provider Name:Candelario garcia, 07/18/2025 04:30:00 PM, [address], [facility], [place], [address], Insurance Providers Payer Name Payer Address Payer Phone Subscriber Number Group Number Insured Name Patient Relationship to Insured Coverage Start Date Coverage End Date [employer] [address] [place] [phone] [id number] ZOËDAWNASHANTELL GARICA Self - patient is the insured Medical (General) History Medical History History ICD Code Problems: Attention deficit hyperactivity disorder, predominantly inattentive type Body mass index 30+ - obesity Generalized anxiety disorder Long-term drug therapy Mild recurrent major depression Severe recurrent major depression withou t psychotic features , Imported from Highlights: Th e patient had several encounters with healthcare providers from March 2024 to December 2024. The patient had telephone consultations with Amberly Gregory and Luana Payan at [facility] on March 18, 2024, and March 15, 2024, respectively. The patient also had an office visit with Migdalia Figueroa DO at [facility] on June 11, 2024, and a telemedicine consultation on October 09, 2024, for spells of decreased attentiveness. On October 28, 2024, the patient visited Emelina Aleman NP at [facility] for bronchitis. The patient had another office visit with Manny Bauer MD at [facility] on December 20, 2024, for bipolar [...]
--- OUTSIDE RECORDS SUMMARY | 2025-06-10 11:36 | XMS_ITS | Clinical Summary ---
Author Organization [address] Address [address] [place] [id number] Care Team Providers Care Sound Recording Technician Name Role Phone Manny Bauer MD Primary Care Provider [phone] Allergies No known active allergies Medications cariprazine (Vraylar) 1.5 mg capsule capsule Take 1 capsule (1.5 mg total) by mouth daily Active topiramate (TOPAMAX) 25 mg tablet Take 1 tablet (25 mg total) by mouth 2 (two) times a day 180 tablet 4 03/21/2025 Active Active Problems Problem Noted Date Diagnosed Date Generalized anxiety disorder 03/19/2025 Severe major depression with psychotic features 03/19/2025 Assessment & Plan (03/21/2025 4:29 PM CDT): Stable, well controlled; good relief with current medication as prescribed by psychiatry Continue cariprazine 1.5 mg daily Attention deficit hyperactiv ity disorder, predominantly inattentive type 03/19/2025 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 Will reassess response to therapy Encouraged continued dietary changes, physical activity as able Assessment & Plan (12/20/2024 4:10 PM CDT): Controlled; has been having weight gain over the past 4 months; patient recently started new antipsychotic which may contribute Will start metformin 500 mg b.i.d.; if continues to have weight gain, would work with Psychiatry to evaluate for treatment options with lower risk of weight gain Bipolar disorder, in full re mission, most recent episode manic 12/20/2024 Assessment & Plan (12/20/2024 4:10 PM CDT): Stable, well controlled, good relief with current medication Continue cariprazine 1.5 mg daily COVID-19 virus infection 11/10/2022 Dyspnea on exertion 11/10/2022 ADD (attention deficit disorder) 01/05/2010 Seasonal allergic rhinitis 01/05/2010 Resolved Problems Problem Noted Date Diagnosed Date Resolved Date GERD (gastroesophageal reflux disease) 11/15/2011 02/28/2022 Asthma 01/05/2010 02/28/2022 Encounters Date Type Department Care Team Description 03/21/2025 3:15 PM CDT Office Visit [facility] Primary Care at [address] [phone] Manny Bauer MD 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 serious comorbidity with body mass index (BMI) of 30.0 to 30.9 in adult (Primary Dx); Severe major depression with psychotic features (HCC) from Last 3 Months Immunizations Immunization Administration Dates Next Due DTP 04/24/1997, 6,01/20/1996,11/19 DTaP 02/22/2001, 7,04/11/1996,01/19,1995 H1N1 Inj 09/17/2009 HPV, Unspecified 11/29/2007,05/15/2007, 7 Hep A, Pediatric 07/21/2006,02/22/2001 Hep B, Adolescent or Pediatric 09/09/1996,1995,1995 Hep B, Unspecified 09/09/1996,1995, 995 Hib (HbOC) 04/24/1997, 6,01/20/1996,11/19 Hib (PRP-D) 04/24/1997, 6,01/10/1996,11/19 Influenza, Quadrivalent, Spl it, Preservative Free, Intramuscular 07/02/2013 Influenza, Unspecified 02/28/2022(Deferr ed: Patient Refused),06/04/2021(Deferred: Patient Refused),06/04/2020(Deferred: Patient Refused),04/22/2008,07/31/2007, 006,09/14/2004,06/29/2001,06/24/1999 MMR 02/22/2001,09/09/1996 Meningococcal MCV4P (Menactra) 07/02/2013 Meningococcal Polysaccharide (Menomune) 04/22/2008 OPV 02/22/2001, 6,01/20/1996,11/19 PPD TEST 06/29/2001 Pfizer SARS-CoV-2 Monovalent Vaccination (12+ Yrs) PURPLE 12/30/2020,12/08/2020 Tdap 02/28/2022,04/22/2008 Medical History Medical History Date Comments GERD (gastroesophageal reflux disease) 11/15/2011 Family History Medical History Relation Name Comments Depression Father Depression Mother Hypertension Mother Hypothyroidism Mother Relation Name Status Comments Father Mother Social History Tobacco Use Types Packs/Day Years Used Date Smoking Tobacco: Never Tobacco Cessation:Counseling Given: Not Answered AUDIT-C Answer Date Recorded Q1: How often do you have a drink containing alc ohol? Monthly or less 02/28/2022 Q2: How many drinks containi ng alcohol do you have on a typical day when you are drinking? 1 or 2 02/28/2022 Q3: How often do you have si x or more drinks on one occasion? Never 02/28/2022 PHQ-2 Answer Date Recorded PHQ-2 Total Score (If total score is 3 or more points, staff should administer the PHQ-9) 0 03/21/2025 Personal Safety Answer Date Recorded Have you ever been in or are you currently in a harmful physical or emotional relationship or is someone making you feel afraid or unsafe? Denies 05/19/2023 Comments No Sex and Gender Information Value Date Recorded Sex Assigned at Not on file Legal Sex Female 12:50 PM [employer]ARFINGER [employer]IE[employer] Gender Identity Not on file Sexual Orientation Not on file Obstetrics History Last Filed Vital Signs Vital Sign Reading Time Taken Comments Blood Pressure 102/68 03/21/2025 3:02 PM CDT Pulse 68 03/21/2025 3:02 PM CDT Temperature 36.8 C (98.2 F) 03/21/2025 3:02 PM CDT Respiratory Rate 16 03/21/2025 3:02 PM CDT Oxygen Saturation 98% 03/21/2025 3:02 PM CDT Inhaled Oxygen Concentration - - Weight 80.3 kg (177 lb) 03/21/2025 3:02 PM CDT Height 160 cm (5' 3) 03/21/2025 3:02 PM CDT Body Mass Index 31.35 03/21/2025 3:02 PM CDT Plan of Treatment Health Maintenance Due Date Last Done Comments Cervical Cancer Screening 1995 Varicella Vaccines (1 of 2 - 13+ 2-dose series) 2008 Regular Well Visit/Exam 18-64 2013 Covid-19 Vaccine ( season) 2025 08/15/2021, 12/30/2020, 12/08/2020 Influenza Vaccine (#1) 2025 3, 04/22/2008, 07/31/2007, Additional history exists Depression Screening 03/21/2026 03/21/2025, 12/20/2024, 07/15/2022, Additional history exists DTaP/Tdap/Td Vaccine (8 - Td or Tdap) 02/29/2032 02/28/2022, 04/22/2008, 02/22/2001, Additional history exists Hepatitis B Screening Completed 09/09/1996 , 09/09/1996, 1995, Additional history exists HPV Vaccines Completed 11/29/2007, 05/05, 03/13/2007 Hepatitis C Screening Completed 12/20/2024 Pneumococcal vaccine <65 Aged Out No longer eligible based on patient's age to complete this topic Procedures Procedure Name Priority Date/Time Associated Diagnosis Comments HEPATITIS C ANTIBODY Routine 12/20/2024 4:15 PM CDT Encounter for hepatitis C screening test for low risk patient from Last 3 Months or Most Recently Relevant to Health Maintenance Results * Hepatitis C antibody Blood (12/20/2024 4:15 PM CDT) Hep C Ab Nonreactive Nonreactive Comment: Interpretive Data Nonreactive: Antibodies to HCV not detected. Does NOT exclude the possibility of recent exposure to HCV. Equivocal: Equivocal for HCV antibodies. Supplemental molecular testing will be automatically performed to determine infection status in accordance with current CDC screening recommendations. Reactive: Positive for HCV antibodies. This may represent current or past HCV infection. Supplemental molecular testing will be automatically performed to determine current infection status in accordance with current CDC screening recommendations. Interpretive data was last revised on 2019. Testing performed by: [facility], [address] [place] [address]., [id number] Blood 12/20/2024 4:15 PM CDT 12/20/2024 7:31 PM CDT Manny Bauer MD LAB MICROBIOLOGY - [facility] L ORDERABLES Final Result [facility] [address] [facility] Department [place] [address] from Last 3 Months or Most Recently Relevant to Health [place] [phone] [facility] HMO [facility] HMO [facility] O Care Teams Sound Recording Technician Relationship Specialty Start Date End [place] [address] PCP - General Family Medicine 02/23/22
--- NOTE | 2025-07-03 08:43 | WPDSLEEPSTUD ---
Sleep Study Date of Study: 06/10/25 Ordering Provider: Junior Farrar APRN Interpreting Physician: Sophia Dover DO Sleep Study Type: Polysomnogram Height: 1.6 m Weight: 77.111 kg Body Mass Index: 30.1 Neck Circumference (inches): 14.5 [place]: 9 Reason for Sleep Study Non-restorative sleep Sleep History The patient is a 29-year-old female that had a sleep study ordered by her primary care for evaluation of sleep apnea. The patient occasionally awakens from sleep short of breath. She rarely awakens at night with heartburn, belching or cough. She frequently snores but is rarely loud enough that others complain. She frequently has trouble sleeping when she has a cold. She occasionally wakes up gasping for air throughout the night. She rarely has breathing problems at night observed by herself or others. She constantly sweats excessively at night. She occasionally has heart palpitations or irregular heartbeats during the night. She occasionally falls asleep during the day but never while driving. She denies sleep paralysis, cataplexy and hypnagogic/ hypnopompic hallucinations. She occasionally has trouble at school or work due to sleepiness. She denies feeling afraid of going to sleep. She denies having nightmares. She rarely remembers her dreams. She constantly has thoughts racing through her mind. She frequently feels sad or depressed. She constantly has anxiety. She constantly has muscular tension. She occasionally notices parts of her body jerk. She denies kicking during the night. She denies having crawling and aching feelings in her legs and denies having leg pain during the night. She occasionally grinds her teeth during sleep and frequently awakens with morning jaw pain. She is frequently bothered by pain during the day but rarely awakened by pain during the night. She constantly wakes up feeling stiff in the morning. She constantly wakes up with sore or achy muscles. She constantly wakes up with pain in the neck, spine and other joints. She goes to bed at 10:00 p.m. on weekdays and at 11:30 p.m. on the weekends. It takes her 30-60 minutes to fall asleep. She wakes up 2-3 times throughout the night for unknown reasons and is able to fall back asleep within 5 minutes. She wakes up at 6:00 a.m. on weekdays and 8:00 a.m. on the weekends. She typically gets 5 hours of sleep per night. She will stay in bed for 30 minutes after waking up in the morning. She currently lives with her and child. She does consume caffeinated beverages within 2 hours of bedtime. She denies engaging in physical exercise before bedtime. She will watch television before falling asleep. She denies taking naps in the afternoon or the evening. She consumes 2 caffeinated beverages per day. She denies tobacco, alcohol and recreational drug use. PMFSH Past Medical History Medical History Seizure Anxiety Family History Family History Mother Hypertension Depression Anxiety Thyroid disorder Father Depression Anxiety Sibling Depression Asthma Anxiety Social History Social History Social History: daily caffeine Smoking status: Never smoker Alcohol intake: never Substance use: never Do You Feel Safe in your Home?: Yes Medications Home Medications ?Medication ?Instructions ?Recorded ?Confirmed ?Type cariprazine 1.5 mg capsule 1.5 mg PO DAILY 04/25/25 04/25/25 History (Vraylar) topiramate BYMOUTH 2XD 04/25/25 04/25/25 History Sleep Procedure A full night split study using the [employer] multi-channel system recorded the standard physiologic parameters including EEG, EOG, submentalis EMG, anterior tibialis EMG, EKG, body position, nasal and oral airflow using nasal pressure sensor and thermistor.? Respiratory parameters of chest and abdominal movements were recorded with Respiratory Inductance Plethysmography belts. Oxygen saturation was recorded by pulse oximetry. Video monitoring was also performed. Sleep stages, periodic limb movements, and EEG arousals were scored in 30 second epochs according to the criteria of the AASM Scoring Manual. The Apnea-Hypopnea Index was calculated using [facility] guidelines for definition of hypopnea with 4% O2 desaturations while scoring respiratory events. Sleep Architecture The total recording time was 427.6 minutes.? The total sleep time was 300.5 minutes. Sleep latency was 16.8 minutes. REM latency was 208.5 minutes. Sleep efficiency was 70.3%. The patient had 19 awakenings for an awakening index of 3.8. Wake after sleep onset time was 110.0 minutes. The patient spent 13.5 minutes, 4.5% of total sleep time in Stage N1. The patient spent 163.0 minutes, 54.2% in Stage N2. The patient spent 85.5 minutes, 28.5% in Stage N3. The patient spent 38.5 minutes, 12.8% in Stage REM sleep. Respiratory Analysis The patient had 0 respiratory events for an overall Apnea Hypopnea Index of 0. The REM Apnea Hypopnea Index was 1.6. The NREM Apnea Hypopnea Index was 0. The patient had a Central Apnea Hypopnea Index of 0. There was no evidence of Juan-Arce Respirations. Arousals There were 129 total arousals for an arousal index of 25.8. There were 129 spontaneous arousals for an index of 25.8. There were 0 arousals due to respiratory events for an index of 0. There were 0 arousals due to periodic limb movements for an index of 0.? There were 0 arousals due to isolated limb movements for an index of 0. Periodic Limb Movements The patient had 0 isolated limb movements with an index of 0. The patient had 0 periodic limb movements with an index of 0. Patient had a total of 0 limb movements with a total limb movement index of 0. Oximetry Data The patient had an average oxygen saturation of 95.7% in sleep with a minimum oxygen saturation of 93.0% and a maximum oxygen saturation of 98.0%. The patient had 0 oxygen desaturations that were 4% or greater resulting in an Oxygen Desaturation Index of 0.? The patient spent 0 minutes of total sleep time with an oxygen saturation below 88%. Snoring Profile Snoring was not present throughout the study. Cardiac Profile The EKG showed normal sinus rhythm.?No arrhythmias or premature beats were seen. The patient had an average pulse rate of 67.1 bpm with a minimum pulse of rate of 53.0 bpm and a maximum pulse rate of 107.0 bpm.? EEG Profile No signs of seizure activity seen. 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 Assessment and Plan Assessment and Plan (1) Non-restorative sleep: Code(s): G47.8 - Other sleep disorders Status: Acute Assessment and Plan: The patient had an overall AHI of 0. This is not consistent with sleep-disordered breathing. 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 Alpha intrusion, also known as alpha-delta sleep, is an EEG finding where alpha waves are present during NREM sleep. Alpha waves are typically present in wake. While alpha intrusion can be seen in a small subset of healthy individuals, it is often found in patients with depression, fibromyalgia, chronic pain and other sleep disorders. Clinically, alpha intrusion presents as non-restorative sleep. Treatment of alpha intrusion is directed towards the underlying cause. Data The data obtained during this sleep study is adequate for interpretation. Certification This sleep study has been reviewed by a board certified sleep medicine physician.
[2025-07-10 11:05] VITALS: BMI 30.1
== END 2025-06-11 06:45 | disposition home or self-care (01) ==
PROVIDERS: PCP Student in an Organized Health Care Education/Training Program; Visit Provider Student in an Organized Health Care Education/Training Program
DX: G47.10 Hypersomnia, unspecified (principal); G47.8 Other sleep disorders
CPT/HCPCS: 95810; 95811